=== PATIENT | female | born 2000 | race Caucasian/White ===

== ENCOUNTER 2022-10-18 18:54 | Emergency (ER) | payer SELFPAY ==
[2022-10-18 20:26] LABS: APPEARANCE,URINE CLOUDY; BILIRUBIN,URINE NEGATIVE (NEGATIVE); COLOR,URINE YELLOW; GLUCOSE,URINE NEGATIVE (NEGATIVE); KETONES,URINE NEGATIVE (NEGATIVE); LEUKOCYTE ESTERASE,URINE SMALL (NEGATIVE); NITRITE,URINE NEGATIVE (NEGATIVE); OCCULT BLOOD,URINE SMALL (NEGATIVE); PH,URINE 5.5 (5.0-8.0); PROTEIN,URINE TRACE mg/dL (NEGATIVE); UROBILINOGEN,URINE 0.2 EU/dL (<2.0)
[2022-10-18 20:32] LABS: BACTERIA,URINE 1+ (NEGATIVE); EPITHELIAL CELLS,URINE FEW (NONE-FEW)
[2022-10-18 20:33] LABS: AMORPHOUS SEDIMENT,URINE MODERATE (NEGATIVE)
== END 2022-10-18 22:15 | disposition home or self-care (01) ==
LOC: MW.ED 18:54
DX: N39.0 Urinary tract infection, site not specified (principal)
CPT/HCPCS: 81001; 81025; 87086; 87088; 87186; 99283

== ENCOUNTER 2022-11-18 14:24 | Emergency (ER) | payer MEDICAID ==
[2022-11-18] MEDS ORDERED: Ibuprofen 400 MG Tab PO ONE (16:25)
== END 2022-11-18 17:28 | disposition home or self-care (01) ==
LOC: MW.ED 14:24
DX: M79.671 Pain in right foot (principal); M79.672 Pain in left foot; Z88.8 Allergy status to other drugs, medicaments and biological substances
CPT/HCPCS: 73610; 99283; A9270

== ENCOUNTER 2023-04-10 19:33 | Emergency (ER) | payer MEDICAID ==
[2023-04-10] MEDS ORDERED: Ondansetron 4 MG/2 ML SDV IVPUSH ONE (21:17)
[2023-04-10] MEDS ORDERED: Sodium Chloride 0.9% 10 ML Syringe FLUSH PRN (21:17)
[2023-04-10] MEDS ORDERED: Sodium Chloride 0.9% 2.5 ML Syringe FLUSH PRN (21:17)
[2023-04-10] MEDS ORDERED: Sodium Chloride 0.9% 1,000 ML IV ONE (21:17)
[2023-04-10] MEDS ORDERED: Naloxone 0.4 MG/ML SDV IVPUSH PRN (21:17)
[2023-04-10] MEDS ORDERED: Famotidine 20 MG/2 ML SDV IVPUSH ONE (21:17)
[2023-04-10] MEDS ORDERED: Morphine 4 MG/ML Syringe IVPUSH ONE (21:17)
[2023-04-10 21:59] LABS: APPEARANCE,URINE CLEAR; BILIRUBIN,URINE NEGATIVE (NEGATIVE); COLOR,URINE YELLOW; GLUCOSE,URINE NEGATIVE (NEGATIVE); KETONES,URINE NEGATIVE (NEGATIVE); LEUKOCYTE ESTERASE,URINE NEGATIVE (NEGATIVE); NITRITE,URINE NEGATIVE (NEGATIVE); OCCULT BLOOD,URINE NEGATIVE (NEGATIVE); PROTEIN,URINE NEGATIVE (NEGATIVE)
[2023-04-10 22:06] LABS: BASOPHILS ABSOLUTE AUTO 0.06 K/uL (0.00-0.20); BASOPHILS PERCENT AUTO 0.5 % (0.0-1.0); EOSINOPHILS PERCENT AUTO 2.6 % (0.0-6.0); HEMATOCRIT 42.8 % (37.0-47.0); IMMATURE GRAN ABSOLUTE AUTO 0.02 K/uL (0.00-0.05); IMMATURE GRAN PERCENT AUTO 0.2 % (0.0-0.4); LYMPHOCYTES ABSOLUTE AUTO 4.25 K/uL (1.00-4.80); LYMPHOCYTES PERCENT AUTO 37.4 % (24.0-44.0); MEAN CORPUSCULAR HEMOGLOBIN 25.1 pg (28.0-32.0); MEAN CORPUSCULAR HGB CONC 32.7 g/dL (32.0-36.0); MEAN CORPUSCULAR VOLUME 76.8 fL (83.0-99.0); MEAN PLATELET VOLUME 9.3 fL (9.4-12.3); MONOCYTES ABSOLUTE AUTO 0.75 K/uL (0.00-0.80); MONOCYTES PERCENT AUTO 6.6 % (0.0-8.0); NEUTROPHILS ABSOLUTE AUTO 5.99 K/uL (1.80-7.70); NEUTROPHILS PERCENT AUTO 52.7 % (41.0-71.0); PLATELET COUNT,PLT 379 K/uL (150-400); RED BLOOD CELL COUNT 5.57 M/uL (4.10-5.30); WHITE BLOOD CELL COUNT,WBC 11.37 K/uL (3.9-11.3)
[2023-04-10 22:10] LABS: AMPHETAMINES SCREEN, URINE NEGATIVE (CUTOFF=500); BARBITURATE SCREEN,URINE NEGATIVE (CUTOFF=200); BENZODIAZEPINES SCREEN,URINE NEGATIVE (CUTOFF=150); BUPRENORPHINE SCREEN,URINE NEGATIVE (CUTOFF=10); METHADONE SCREEN, URINE NEGATIVE (CUTOFF=200); METHAMPHETAMINES SCREEN, URINE NEGATIVE (CUTOFF=500); OXYCODONE SCREEN,URINE NEGATIVE (CUT0FF=100); PCP SCREEN,URINE NEGATIVE (CUTOFF=25); THC SCREEN,URINE 20 NG/ML NEGATIVE (CUTOFF=50)
[2023-04-10 22:39] LABS: A/G RATIO 0.9 (0.9-1.6); ALANINE AMINOTRANSFERASE,ALT 16 IU/L (14-63); ALKALINE PHOSPHATASE 102 U/L (46-116); ASPARTATE AMNIOTRANSFERASE,AST 11 IU/L (15-37); BILIRUBIN TOTAL 0.3 mg/dL (0.2-1.0); BLOOD UREA NITROGEN,BUN 7 mg/dL (7.0-18.0); CALCIUM 8.8 mg/dL (8.5-10.1); CARBON DIOXIDE,CO2 26.1 mmol/L (21.0-32.0); CHLORIDE,CL 103 mmol/L (98-107); CREATININE 0.9 mg/dL (0.6-1.0); EST CRCL DRUG DOSING (CG) 94.54 mL/min; GLUCOSE RANDOM 92 mg/dL (74-106); LIPASE 34 U/L (16-77); POTASSIUM,K 3.9 mmol/L (3.5-5.1); PROTEIN TOTAL,TP 8.3 g/dL (6.4-8.2); SODIUM,NA 141 mmol/L (136-145)
[2023-04-10 22:40] LABS: ESTIMATED GFR 92 mL/min (>60); ETHANOL BLOOD MEDICAL < 3.0 mg/dL
[2023-04-10 22:55] LABS: ACETAMINOPHEN <2.0 ug/mL; SALICYLATE 1.8 mg/dL (0.0-20.0)
[2023-04-10] MEDS ORDERED: Iopamidol 755 MG/ML 500 ML Multipack Bottle IVPUSH STA (23:42)
== END 2023-04-11 01:00 | disposition home or self-care (01) ==
LOC: MW.ED 19:33
DX: R10.84 Generalized abdominal pain (principal); R45.851 Suicidal ideations; Z91.018 Allergy to other foods
CPT/HCPCS: 36415; 74177; 76705; 80053; 80143; 80179; 80305; 80307; 81003; 83690; 84443; 84703; 85025; 96361; 96374; 96375; 99285; J2270; J2405; J3490; J7030; Q9967

== ENCOUNTER 2023-04-23 07:28 | Day surgery (SDC) | payer MEDICAID ==
[~2023-04-23 07:28] MED LIST: cefOXitin 2 GM in Sodium Chloride 0.9% 100 ML IV ONE
[2023-04-23] MEDS ORDERED: Bupivacaine 0.5% 30 ML SDV ONE (07:45)
[2023-04-23] MEDS ORDERED: Naloxone 0.4 MG/ML SDV IVPUSH PRN (07:56)
[2023-04-23] MEDS ORDERED: Metoclopramide 10 MG/2 ML SDV IVPUSH PRN (07:56)
[2023-04-23] MEDS ORDERED: fentaNYL 50 MCG/ML SDV IVPUSH PRN (07:56)
[2023-04-23] MEDS ORDERED: droPERidol 5 MG/2 ML SDV IVPUSH PRN (07:56)
[2023-04-23] MEDS ORDERED: Ondansetron 4 MG/2 ML SDV IVPUSH PRN (07:56)
[2023-04-23] MEDS ORDERED: HYDROmorphone 1 MG/ML Syringe IVPUSH PRN (07:56)
[2023-04-23] MEDS ORDERED: Albuterol 0.083% 2.5 MG/3 ML Neb Soln NEB PRN (07:56)
[2023-04-23] MEDS ORDERED: Morphine 2 MG/ML SYRINGE IVPUSH PRN (07:56)
[2023-04-23] MEDS: Lactated Ringers 1,000 ML IV SCH (08:11)
[2023-04-23] MEDS ORDERED: fentaNYL 100 MCG/2 ML SDV ONE ×2 (09:36→09:48)
[2023-04-23] MEDS ORDERED: Rocuronium Bromide 50 MG/5 ML Syringe ONE (09:41)
[2023-04-23] MEDS ORDERED: Ketorolac 30 MG/ML SDV ONE (09:41)
[2023-04-23] MEDS ORDERED: Dexamethasone 4 MG/ML 5 ML MDV ONE (09:41)
[2023-04-23] MEDS ORDERED: Ondansetron 4 MG/2 ML SDV ONE (09:41)
[2023-04-23] MEDS ORDERED: propofoL 50 ML ONE (09:41)
[2023-04-23] MEDS ORDERED: Lidocaine 2% 11 ML Jelly Filled Syringe ONE (09:41)
[2023-04-23] MEDS ORDERED: cefOXitin 1 GM Vial ONE (09:41)
[2023-04-23] MEDS ORDERED: Sugammadex Sodium 200 MG/2 ML VIAL IV ONE (09:41)
[2023-04-23] MEDS ORDERED: Acetaminophen/HYDROcodone 325-5 MG Tab PO PRN (10:28)
[2023-04-23] MEDS ORDERED: Morphine 4 MG/ML Syringe IVPUSH PRN (10:28)
[2023-04-23] MEDS ORDERED: Lactated Ringers 1,000 ML IV SCH (10:30)
== END 2023-04-23 12:40 | disposition home or self-care (01) ==
LOC: MW.SDS 07:28
PROVIDERS: ATTEND Surgery
DX: K80.10 Calculus of gallbladder with chronic cholecystitis without obstruction (principal); F31.9 Bipolar disorder, unspecified; F41.9 Anxiety disorder, unspecified; K90.49 Malabsorption due to intolerance, not elsewhere classified; F90.9 Attention-deficit hyperactivity disorder, unspecified type; E66.9 Obesity, unspecified; Z68.33 Body mass index [BMI] 33.0-33.9, adult; F17.290 Nicotine dependence, other tobacco product, uncomplicated; Z98.890 Other specified postprocedural states; Z79.899 Other long term (current) drug therapy
CPT/HCPCS: 47563; 81025; A9270; J0131; J0665; J0694; J1100; J1885; J2405; J2704; J3010; J3490; J7030; J7120; 00790

== ENCOUNTER 2024-01-05 15:11 | Emergency (ER) | payer MEDICAID ==
[2024-01-05 16:04] LABS: BASOPHILS ABSOLUTE AUTO 0.04 K/uL (0.00-0.20); BASOPHILS PERCENT AUTO 0.4 % (0.0-1.0); EOSINOPHILS ABSOLUTE AUTO 0.23 K/uL (0.00-0.45); EOSINOPHILS PERCENT AUTO 2.4 % (0.0-6.0); HEMOGLOBIN 12.1 g/dL (12.0-16.0); IMMATURE GRAN ABSOLUTE AUTO 0.11 K/uL (0.00-0.05); IMMATURE GRAN PERCENT AUTO 1.1 % (0.0-0.4); LYMPHOCYTES ABSOLUTE AUTO 2.41 K/uL (1.00-4.80); LYMPHOCYTES PERCENT AUTO 24.8 % (24.0-44.0); MEAN CORPUSCULAR HEMOGLOBIN 25.3 pg (28.0-32.0); MEAN CORPUSCULAR HGB CONC 32.7 g/dL (32.0-36.0); MEAN CORPUSCULAR VOLUME 77.4 fL (83.0-99.0); MEAN PLATELET VOLUME 9.6 fL (9.4-12.3); MONOCYTES ABSOLUTE AUTO 0.67 K/uL (0.00-0.80); MONOCYTES PERCENT AUTO 6.9 % (0.0-8.0); NEUTROPHILS ABSOLUTE AUTO 6.24 K/uL (1.80-7.70); NEUTROPHILS PERCENT AUTO 64.4 % (41.0-71.0); PLATELET COUNT,PLT 273 K/uL (150-400); RED BLOOD CELL COUNT 4.78 M/uL (4.10-5.30)
[2024-01-05 16:17] LABS: A/G RATIO 0.9 (0.9-1.6); ALBUMIN 3.5 g/dL (3.4-5.0); BILIRUBIN TOTAL 0.3 mg/dL (0.2-1.0); CALCIUM 8.2 mg/dL (8.5-10.1); CARBON DIOXIDE,CO2 24.7 mmol/L (21.0-32.0); CREATININE 0.8 mg/dL (0.6-1.0); EST CRCL DRUG DOSING (CG) 102.39 mL/min; POTASSIUM,K 4.1 mmol/L (3.5-5.1); PROTEIN TOTAL,TP 7.2 g/dL (6.4-8.2)
[2024-01-05 16:54] LABS: CORONAVIRUS COVID-19 NAA NEGATIVE (NEGATIVE); INFLUENZA A NAA NEGATIVE (NEGATIVE); INFLUENZA B NAA NEGATIVE (NEGATIVE)
[2024-01-05] MEDS: Ketorolac 30 MG/ML SDV IM ONE (17:04)
== END 2024-01-05 17:37 | disposition home or self-care (01) ==
LOC: MW.ED 15:11
DX: R07.9 Chest pain, unspecified (principal); E66.9 Obesity, unspecified; F17.210 Nicotine dependence, cigarettes, uncomplicated; Z91.018 Allergy to other foods; Z75.8 Other problems related to medical facilities and other health care; Z68.35 Body mass index [BMI] 35.0-35.9, adult
CPT/HCPCS: 0240U; 36415; 71045; 80053; 85025; 93005; 96372; 99285; J1885; 93010; 99283

== ENCOUNTER 2024-03-24 19:11 | Emergency (ER) | payer MEDICAID ==
[2024-03-24 19:32] LABS: APPEARANCE,URINE SLT CLOUDY; BILIRUBIN,URINE NEGATIVE (NEGATIVE); COLOR,URINE YELLOW; GLUCOSE,URINE NEGATIVE (NEGATIVE); KETONES,URINE NEGATIVE (NEGATIVE); LEUKOCYTE ESTERASE,URINE SMALL (NEGATIVE); NITRITE,URINE NEGATIVE (NEGATIVE); OCCULT BLOOD,URINE MODERATE (NEGATIVE); PROTEIN,URINE TRACE mg/dL (NEGATIVE); UROBILINOGEN,URINE 0.2 EU/dL (<2.0)
[2024-03-24 19:38] LABS: SQUAMOUS EPITHELIAL CELLS,UR MODERATE
[2024-03-24 19:39] LABS: BACTERIA,URINE 4+ (NEGATIVE); MUCUS,URINE LIGHT (NONE-MOD)
[2024-03-24 19:42] LABS: AMPHETAMINES SCREEN, URINE NEGATIVE (CUTOFF=500); BARBITURATE SCREEN,URINE NEGATIVE (CUTOFF=200); BENZODIAZEPINES SCREEN,URINE NEGATIVE (CUTOFF=150); BUPRENORPHINE SCREEN,URINE NEGATIVE (CUTOFF=10); METHADONE SCREEN, URINE NEGATIVE (CUTOFF=200); METHAMPHETAMINES SCREEN, URINE NEGATIVE (CUTOFF=500); OXYCODONE SCREEN,URINE NEGATIVE (CUT0FF=100); PCP SCREEN,URINE NEGATIVE (CUTOFF=25); THC SCREEN,URINE 20 NG/ML NEGATIVE (CUTOFF=50)
[2024-03-24 19:51] LABS: BASOPHILS ABSOLUTE AUTO 0.03 K/uL (0.00-0.20); BASOPHILS PERCENT AUTO 0.4 % (0.0-1.0); EOSINOPHILS ABSOLUTE AUTO 0.19 K/uL (0.00-0.45); EOSINOPHILS PERCENT AUTO 2.5 % (0.0-6.0); HEMATOCRIT 39.2 % (37.0-47.0); HEMOGLOBIN 12.7 g/dL (12.0-16.0); IMMATURE GRAN ABSOLUTE AUTO 0.03 K/uL (0.00-0.05); IMMATURE GRAN PERCENT AUTO 0.4 % (0.0-0.4); LYMPHOCYTES ABSOLUTE AUTO 1.78 K/uL (1.00-4.80); LYMPHOCYTES PERCENT AUTO 23.1 % (24.0-44.0); MEAN CORPUSCULAR HGB CONC 32.4 g/dL (32.0-36.0); MEAN CORPUSCULAR VOLUME 77.2 fL (83.0-99.0); MONOCYTES PERCENT AUTO 6.5 % (0.0-8.0); NEUTROPHILS ABSOLUTE AUTO 5.16 K/uL (1.80-7.70); NEUTROPHILS PERCENT AUTO 67.1 % (41.0-71.0); PLATELET COUNT,PLT 347 K/uL (150-400); RED BLOOD CELL COUNT 5.08 M/uL (4.10-5.30); WHITE BLOOD CELL COUNT,WBC 7.69 K/uL (3.9-11.3)
[2024-03-24 20:26] LABS: ACETAMINOPHEN <2.0 ug/mL; ALANINE AMINOTRANSFERASE,ALT 21 IU/L (14-63); ALBUMIN 3.8 g/dL (3.4-5.0); ALKALINE PHOSPHATASE 97 U/L (46-116); ASPARTATE AMNIOTRANSFERASE,AST 17 IU/L (15-37); BILIRUBIN TOTAL 0.3 mg/dL (0.2-1.0); BLOOD UREA NITROGEN,BUN 7 mg/dL (7.0-18.0); CALCIUM 8.7 mg/dL (8.5-10.1); CHLORIDE,CL 103 mmol/L (98-107); CREATININE 0.9 mg/dL (0.6-1.0); EST CRCL DRUG DOSING (CG) 83.23 mL/min; GLUCOSE RANDOM 96 mg/dL (74-106); MAGNESIUM 2.1 mg/dL (1.8-2.4); POTASSIUM,K 3.8 mmol/L (3.5-5.1); PROTEIN TOTAL,TP 7.7 g/dL (6.4-8.2); SALICYLATE 3.6 mg/dL (0.0-20.0); SODIUM,NA 142 mmol/L (136-145); TSH ULTRASENSITIVE 1.03 uIU/mL (0.36-3.74)
[2024-03-24 20:29] LABS: ESTIMATED GFR 92 mL/min (>60); ETHANOL BLOOD MEDICAL 3 mg/dL
[2024-03-24] MEDS: Cefdinir 300 MG Cap PO ONE (22:32)
[2024-03-24] MEDS: LORazepam 1 MG Tab PO ONE (23:49)
== END 2024-03-25 00:31 ==
LOC: MW.ED 19:11
DX: R45.851 Suicidal ideations (principal); E66.9 Obesity, unspecified; Z90.49 Acquired absence of other specified parts of digestive tract; Z91.048 Other nonmedicinal substance allergy status; Z75.8 Other problems related to medical facilities and other health care; Z68.36 Body mass index [BMI] 36.0-36.9, adult
CPT/HCPCS: 36415; 80053; 80143; 80179; 80305; 80307; 81001; 81025; 83735; 84443; 85025; 99285; A9270

== ENCOUNTER 2024-12-06 17:48 | Emergency (ER) | payer MEDICAID ==
[2024-12-06] MEDS: Rabies Immune Globulin/PF (HyperRAB) 300 UNIT/ML 1 ML SDV IM ONE (19:12)
[2024-12-06] MEDS: Rabies Vaccine (Avian) 2.5 Unit Inj Kit IM ONE (19:13)
[2024-12-06] MEDS: Diphtheria,Pertussis(Acell),Tetanus Vaccine 0.5 ML Syringe IM ONE (19:14)
== END 2024-12-06 19:42 | disposition home or self-care (01) ==
LOC: MW.ED 17:48
DX: S91.051A Open bite, right ankle, initial encounter (principal); E66.9 Obesity, unspecified; Z90.49 Acquired absence of other specified parts of digestive tract; Z91.018 Allergy to other foods; Z79.899 Other long term (current) drug therapy; W54.0XXA Bitten by dog, initial encounter; Z23 Encounter for immunization
CPT/HCPCS: 90375; 90471; 90472; 90675; 90715; 96372; 99283; 99283-25